=== PATIENT | female | born 1980 | race Caucasian/White ===

== ENCOUNTER → 2016-11-14 11:42 | Emergency (ER) | payer BC ==
[~2016-11-14 11:42] MED LIST: Ketorolac INJ* 60 MG/2 ML VIAL IM ONE
--- NOTE | 2016-11-14 13:12 | ED ---
Complex/Multi-Sys Presentation - HPI Summary HPI Summary: pt. complains of back, neck, chest and shoulder tightness, states they're knots in her back. unable to go to massage therapist due to not liking people touching her. She has had this pain for about 2 weeks and attributes it to stress at work. She says the pain improves in a hot shower and she has not taken any other medications to help with her discomfort. The pain does not radiate, but feels like it's in each separate place. She denies nausea, sweating , lightheadedness or shortness of breath. - History Of Current Complaint Chief Complaint: EDBackInjuryPain Time Seen by Provider: 11/14/16 12:00 Hx Obtained From: Patient Onset/Duration: Gradual Onset Timing: Intermittent, Lasting: - worse at times Severity Currently: Mild Severity Initially: Mild Character: Dull Aggravating Factor(s): stress Alleviating Factor(s): hot shower - Allergies/Home Medications Allergies/Adverse Reactions: Allergies Allergy/AdvReac Type Severity Reaction Status Date / Time Amoxicillin Allergy Severe HIVES, Verified 06/16/13 08:51 FEVER PMH/Surg Hx/FS Hx/Imm Hx Previously Healthy: Yes Endocrine/Hematology History: Denies: Hx Diabetes, Hx Thyroid Disease Cardiovascular History: Denies: Hx Hypertension, Hx Peripheral Vascular Disease Respiratory History: Denies: Hx Asthma, Hx Chronic Obstructive Pulmonary Disease (COPD) GI History: Denies: Hx Ulcer Musculoskeletal History: Denies: Hx Arthritis, Hx Osteoporosis, Hx Scoliosis Sensory History: Denies: Hx Cataracts, Hx Contacts or Glasses, Hx Glaucoma Opthamlomology History: Denies: Hx Cataracts, Hx Contacts or Glasses, Hx Glaucoma Neurological History: Reports: Hx Headaches Denies: Other Neuro Impairments/Disorders Psychiatric History: Denies: Hx Anxiety, Hx Depression - Surgical History Surgery Procedure, Year, and Place: TEETH EXTRACTION Infectious Disease History: No Infectious Disease History: Denies: Hx Hepatitis, Hx Human Immunodeficiency Virus (HIV), Traveled Outside the [place] in Last 30 Days - Family History Known Family History: Positive: None - Social History Occupation: Employed Full-time Lives: With Family Alcohol Use: Occasionally Substance Use Type: Reports: None Smoking Status (MU): Never Smoked Tobacco Review of Systems Negative: Fever, Chills Positive: Other - chest pressure Negative: Shortness Of Breath Positive: Myalgia Negative: Weakness, Paresthesia, Numbness All Other Systems Reviewed And Are Negative: Yes Physical Exam Triage Information Reviewed: Yes Vital Signs On Initial Exam: Initial Vitals Temp Pulse Resp BP Pulse Ox 98.1 F 116 20 123/81 105 11/14/16 11:49 11/14/16 11:49 11/14/16 11:49 11/14/16 11:49 11/14/16 11:49 Vital Signs Reviewed: Yes Appearance: Positive: Well-Appearing, No Pain Distress, Obese Skin: Positive: Warm, Skin Color Reflects Adequate Perfusion, Dry, Soft Head/Face: Positive: Normal Head/Face Inspection Eyes: Positive: EOMI, ISMAEL, Conjunctiva Clear ENT: Positive: Hearing grossly normal Neck: Positive: Supple, Nontender, No Lymphadenopathy Respiratory/Lung Sounds: Positive: Clear to Auscultation, Breath Sounds Present Cardiovascular: Positive: RRR - on exam Abdomen Description: Positive: Nontender, Soft. Negative: CVA Tenderness (R), CVA Tenderness (L), Distended, Guarding Bowel Sounds: Positive: Present Musculoskeletal: Negative: Pain @, Edema Left, Edema Right Neurological: Positive: Sensory/Motor Intact, Alert, Oriented to Person Place, Time, NV Bundle Intact Distally, Normal Gait Psychiatric: Positive: Affect/Mood Appropriate AVPU Assessment: Alert Diagnostics - Vital Signs Vital Signs Temp Pulse Resp BP Pulse Ox 11/14/16 11:52 98.6 F 91 20 120/78 100 11/14/16 11:49 98.1 F 116 20 123/81 105 - Laboratory Lab Statement: Any lab studies that have been ordered have been reviewed, and results considered in the medical decision making process. - Radiology No standard instances Xray Interpretation: No Acute Changes Radiology Interpretation Completed By: Radiologist - EKG No standard instances Cardiac Rate: NL EKG Rhythm: Sinus Rhythm ST Segment: Normal Ectopy: None Complex Multi-Symp Course/Dx - Diagnoses Differential Diagnoses/HQI/PQRI: Cardiac Ischemia, Closed Cranial Trauma, CVA, Metabolic Abnormality, Other Provider Diagnoses: Musculoskeletal pain Discharge - Discharge Plan Condition: Stable Disposition: HOME Prescriptions: Diazepam TAB(*) [Valium TAB(*)] 5 mg PO BID #10 tab MDD 2 Patient Education Materials: Musculoskeletal Pain (ED) Forms: *Work Release Referrals: Breana BOWENSPLavonne [Primary Care Provider] - Additional Instructions: Please use begin using 600mg of ibuprofen three times daily with meals for pain tomorrow at lunch for the next 3-5 days. Use the anti-anxiety medication at night. You need to contact your primary care provider for an appointment in the next 3-5 days to discuss your concerns and symptoms.
[2016-11-14 13:13] LABS: Hematocrit 43 % (35-47); Hemoglobin 14.2 g/dl (12.0-16.0); Mean Corpuscular HGB Conc 33 g/dl (31-36); Mean Corpuscular Hemoglobin 29 pg (27-31); Mean Corpuscular Volume 88 fL (80-97); Mean Platelet Volume 9 um3 (7.4-10.4); Red Blood Count 4.88 10^6/ul (4.0-5.4); Red Cell Distribution Width 13 % (10.5-15); White Blood Count 10.5 10^3/ul (3.5-10.8)
--- NOTE | 2016-11-14 13:13 | RAD ---
HISTORY: Shortness of breath, chest pressure COMPARISONS: None VIEWS: 2: Frontal dual-energy and lateral views of the chest. FINDINGS: CARDIOMEDIASTINAL SILHOUETTE: The cardiomediastinal silhouette is normal. [place]: The [place] are normal. PLEURA: The costophrenic angles are sharp. No pleural abnormalities are noted. LUNG PARENCHYMA: The lungs are clear. ABDOMEN: The upper abdomen is clear. There is no subphrenic gas. BONES AND SOFT TISSUES: No bone or soft tissue abnormalities are noted. OTHER: None. IMPRESSION: NO ACTIVE CARDIOPULMONARY DISEASE.
[2016-11-14 13:30] LABS: Troponin I 0.01 ng/mL (<0.04)
[2016-11-14 13:34] LABS: BUN/Creatinine Ratio 15.6 (8-20); Potassium 3.5 mmol/L (3.5-5.0)
[2016-11-14 13:35] LABS: Albumin 4.6 g/dL (3.2-5.2); C Reactive Protein 6.72 mg/L (< 5.00); Calcium 9.6 mg/dL (8.6-10.3); EGFR African American 109.7 (>60); EGFR Non-African American 85.3 (>60); Globulin 3.4 g/dL (2-4); Total Bilirubin 0.4 mg/dL (0.2-1.0)
[2016-11-14 14:10] VITALS: BP 111/74
== END | disposition home or self-care (01) ==
LOC: ED 11:42
DX: M79.1 Myalgia (principal); R07.89 Other chest pain
CPT/HCPCS: 36415; 71020; 80053; 84484; 85025; 85379; 86140; 96372; 99281; J1885

== ENCOUNTER 2018-11-03 13:48 | Inpatient (IN) | payer OTHER ==
[2018-11-03] MEDS ORDERED: Lactated Ringers 1000 ML Bag* 1,000 ML IV ONE (14:12)
[2018-11-03] MEDS ORDERED: Buffered Lidocaine 1% SYRIN* 1 ML/SYRINGE INTRADERM ONE (14:12)
[2018-11-03] MEDS ORDERED: ceFAZolin 2 GM PREMIX in ORs 2 GM/50 ML BAG IVPB ONE (14:12)
[2018-11-03 15:15] LABS: ABS Basophils 0.1 10^3/ul (0-0.2); ABS Eosinophils 0.1 10^3/ul (0-0.6); ABS Monocytes 0.7 10^3/ul (0-0.8); ABS Neutrophils 7.9 10^3/ul (1.5-7.7); Eosinophil % 0.7 %; Hematocrit 35 % (35-47); Hemoglobin 11.8 g/dL (12.0-16.0); Lymphocyte % 18.6 %; Mean Corpuscular HGB Conc 34 g/dL (31-36); Mean Corpuscular Hemoglobin 30 pg (27-31); Mean Corpuscular Volume 88 fL (80-97); Nucleated Red Blood Cells % 0.1; Platelet Count 250 10^3/uL (150-450); Red Blood Count 3.97 10^6 /uL (3.70-4.87); Red Cell Distribution Width 14 % (10.5-15); White Blood Count 10.7 10^3/uL (3.5-10.8)
--- NOTE | 2018-11-03 21:59 | HP ---
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, BMI 38 Pertinent Past Surgical History: None Pertinent Family History: See Records - m: gestational diabetes mellitus, F: DM; PGM: DM; MGM: DM and stroke - Antepartal Records Antepartal Records: Reviewed, Complicated by: - AMA, BMI 38, low lying placenta (resolved), calcified blood clot in brain Review of Systems Constitutional: Comfortable CV Complaint: No Respiratory: Shortness of Breath: No Gastrointestinal: No Nausea/Vomiting, Normal Bowel Movement Genitourinary: No Dysuria, No Bleeding, No Leaking Fluid Musculoskeletal: No Complaint, Contractions Neurological: No Headache, No Visual Changes Movement: Decreased Exam Allergies/Adverse Reactions: Allergies amoxicillin Allergy (Verified 07/06/18 19:19) Hives cat dander Allergy (Verified 11/03/18 14:59) Eyes Itchy/Swollen/Red/Watery onion Allergy (Uncoded 11/03/18 14:59) Difficulty Breathing/Wheezing T: 98.5, P:101, R:16, BP: 108/56, O2:99% Lab Values - Entire Visit: Laboratory Tests 11/03/18 11/03/18 11/03/18 14:40 14:40 20:25 WBC 10.7 RBC 3.97 Hgb 11.8 L Hct 35 MCV 88 MCH 30 MCHC 34 RDW 14 Plt Count 250 MPV 10.0 Neut % (Auto) 73.5 Lymph % (Auto) 18.6 [place] % (Auto) 6.6 Eos % (Auto) 0.7 Baso % (Auto) 0.6 Absolute Neuts (auto) 7.9 H Absolute Lymphs (auto) 2.0 Absolute Monos (auto) 0.7 Absolute Eos (auto) 0.1 Absolute Basos (auto) 0.1 Absolute Nucleated RBC 0.0 Nucleated RBC % 0.1 Vag Amniotic Fld Detect Positive Blood Type O Positive Antibody Screen Negative - Measurements Height: 5 ft 1 in Weight: 213 lb Weight in lbs: [id number] Body Mass Index (BMI): 40.2 Pre- Weight: 204 lb Weight Gained This : 9 lbs and 0 ozs - Exam Breast: Breast Exam Deferred CVA: No CVA Tenderness Extremities: No Edema Heart: Normal Rhythm/Heart Sounds HEENT: No Significant Findings Lungs: Clear Bilaterally Rectal: Rectal Exam Deferred Reflexes: DTR 2+ Thyroid: No Thyromegaly - Abdominal Exam Abdomen Exam: Fundal Height Consistent with Dates - Ultrasound/Biophysical Profile Ultrasound Status: Not Done Targeted Exam Findings Estimated Weight: 8lb Cervical Exam: 4cm Effacement: 60% Station: -2 Presenting Part: Vertex Membrane Status: Bulging Bleeding/Discharge: Bloody Show EFM Findings - External Monitor Findings Baseline Heart Rate: 150 External Monitor Findings: Accelerations Present, No Pattern of Variable or Late Decelerations, Variability Moderate, Baseline Stable Contractions: Irregular, Mild, < 45 Seconds Assessment/Plan - Assessment 38 y.o , 39w6d, AMA, induction of labor - Obstetrical Risk Factors Obstetrical Risk Factors: GBS Positive - Plan Plan: Induction - Date/Time of Admission Date of Admission: 11/03/18 Time of Admission: 14:45
[2018-11-03] MEDS ORDERED: Oxytocin in LR* 20 UNITS/1,000 ML BAG IVPB SCH (22:00)
[2018-11-03] MEDS: ceFAZolin 1 GM in Dextrose (*) 1 GM/50 ML BAG IVPB SCH (22:42)
--- NOTE | 2018-11-04 00:50 | PN ---
Progress Note - Progress Note Date of Service: 11/04/18 SOAP: Subjective: Pt reports contractions are more intense than before SROM but are still irregular and have not intensified in last few hours. Objective: T:98.2, R:20, BP:112/78, P:81 FHR: 125, + accels, -decels, moderate variability cervix: 4-5/70/-2 Assessment: 38 y.o. , cat I NST, GBS +, SROM, induction of labor Plan: 1) Reviewed options with pt and pt agrees to pitocin augmentation. Reviewed risks versus benefits and questions answered to pt satisfaction 2) Low dose pitocin to be started at 3mu 3) Pt plans epidural with onset of more intense pain 4) Reevaluate in 2 hrs or sooner PRN
--- NOTE | 2018-11-04 04:53 | PN ---
Progress Note - Progress Note Date of Service: 11/01/18 SOAP: Subjective: Pt reports she was coping well and then she felt a "pop, pop" followed by an increase in pressure, leaking of more bloody tinged fluid and more powerful contractions. Pt requests an epidural Objective: BP:104/60, P:73, T:98.7, FHR: 135, + accels, -decels, moderate variability, ctx q 2-3min, pitocin at 8mu cervix: 5.5/80/-1 Laboratory Tests 11/03/18 11/03/18 14:40 14:40 WBC 10.7 RBC 3.97 Hgb 11.8 L Hct 35 Plt Count 250 Blood Type O Positive Antibody Screen Negative Assessment: 38 y.o. , active labor Plan: 1) Anesthesia consult for epidural 2) Continue position changes for descent and reevaluate in 2 hrs or sooner PRN
[2018-11-04] MEDS ORDERED: OBEPIDURAL* 0 ML EPIDURAL ONE (05:01)
[2018-11-04] MEDS ORDERED: OBEPIDURAL* 250 ML EPIDURAL ONE (05:03)
[2018-11-04] MEDS ORDERED: Bupivacaine 0.25% SDV PF* 10 ML VIAL INJ ONE (05:11)
[2018-11-04] MEDS ORDERED: Lidocaine 1% INJ* 10 MG/ML 30 ML SDV ONE ×2 (05:14→14:11)
[2018-11-04] MEDS ORDERED: Phenylephrine 40 MCG/ML SYRINGE IV PUSH PRN (05:42)
[2018-11-04] MEDS ORDERED: Famotidine TAB* 20 MG PO PRN (05:42)
[2018-11-04] MEDS ORDERED: Sodium Citrate/Citric Acid* 15 ML UDC PO PRN (05:42)
[2018-11-04] MEDS ORDERED: Lactated Ringers 1000 ML Bag* 1,000 ML IV ONE (05:42)
[2018-11-04] MEDS ORDERED: EPHEDrine (Pressors)* 50 MG/ML VIAL IV PUSH PRN (05:42)
[2018-11-04] MEDS ORDERED: Lactated Ringers 1000 ML Bag* 1,000 ML IV SCH ×2 (06:00→11:00)
[2018-11-04] MEDS ORDERED: OBEPIDURAL* 250 ML EPIDURAL SCH (06:00)
[2018-11-04] MEDS: ceFAZolin 1 GM in Dextrose (*) 1 GM/50 ML BAG IVPB SCH (06:52)
[2018-11-04] MEDS: Lactated Ringers 1000 ML Bag* 1,000 ML IV SCH ×2 (08:18→10:13)
[2018-11-04] MEDS ORDERED: Glycerin ADULT SUPP PR PRN (10:44)
[2018-11-04] MEDS ORDERED: Dibucaine 1% 28.35 GM TUBE PR PRN (10:44)
[2018-11-04] MEDS ORDERED: Witch Hazel PAD* JAR TOPICAL PRN (10:44)
[2018-11-04] MEDS ORDERED: Acetaminophen TAB* 325 MG PO PRN (10:44)
--- NOTE | 2018-11-04 10:46 | PROCNOTE ---
[facility] OB: Delivery Note - Delivery A Date of : 11/04/18 Time of : 10:22 Sex: Female Score 1 Minute: 9 Score 5 Minutes: 9 Gestational Age in Weeks and Days at Delivery: 40 Weeks and 0 Days Delivery Method: Spontaneous Vaginal Labor: Induced Amniotic Fluid: Clear Estimated Blood Loss: 300 Anesthesia/Analgesia: CEI for Labor Delivered By: Penny Ling - Nursery Level of Nursery: Regular/Bedside - Perineum Perineal Injury: Perineal Laceration, 1st Degree Perineal Repair: By Delivering Practioner - Events Delivery Events of Note: Pitocin During Labor, Full Course of Antibiotics
[2018-11-04] MEDS ORDERED: Simethicone TAB* 80 MG TAB.CHEW PO SCH (12:30)
[2018-11-04] MEDS: Docusate CAP* 100 MG PO SCH ×2 (16:22→20:33)
[2018-11-04] MEDS: Ibuprofen TAB* 600 MG PO PRN (18:27)
[2018-11-05] MEDS: Ibuprofen TAB* 600 MG PO PRN ×3 (00:48→14:49)
[2018-11-05 06:50] LABS: ABS Basophils 0.1 10^3/ul (0-0.2); ABS Eosinophils 0.1 10^3/ul (0-0.6); Eosinophil % 0.9 %; Hematocrit 29 % (35-47); Hemoglobin 9.7 g/dL (12.0-16.0); Lymphocyte % 21.2 %; Mean Corpuscular HGB Conc 33 g/dL (31-36); Mean Corpuscular Hemoglobin 29 pg (27-31); Mean Corpuscular Volume 88 fL (80-97); Mean Platelet Volume 9.2 fL (7.4-10.4); Platelet Count 186 10^3/uL (150-450); Red Blood Count 3.31 10^6 /uL (3.70-4.87); Red Cell Distribution Width 14 % (10.5-15); White Blood Count 14.4 10^3/uL (3.5-10.8)
[2018-11-05] MEDS: Ferrous Gluconate TAB* 324 MG TAB PO SCH ×2 (09:14→20:20)
[2018-11-05] MEDS: Docusate CAP* 100 MG PO SCH ×3 (09:15→20:20)
[2018-11-06] MEDS: Ibuprofen TAB* 600 MG PO PRN (01:48)
[2018-11-06 07:57] VITALS: BP 127/73
[2018-11-06] MEDS: Docusate CAP* 100 MG PO SCH (09:12)
[2018-11-06] MEDS: Ferrous Gluconate TAB* 324 MG TAB PO SCH (09:12)
== END 2018-11-06 11:30 | disposition home or self-care (01) | DRG 560 ==
LOC: MCHOBOUT 13:48 → MCHOB 14:15
PROVIDERS: ADMIT Midwife; ATTEND Midwife
PROC: 3E033VJ Introduction of Other Hormone into Peripheral Vein, Percutaneous Approach (ICD-10-PCS; principal; 2018-11-03)
PROC: 10E0XZZ Delivery of Products of Conception, External Approach (ICD-10-PCS; 2018-11-03)
PROC: 4A1HX4Z Monitoring of Products of Conception, Cardiac Electrical Activity, External Approach (ICD-10-PCS; 2018-11-03)
PROC: 0HQ9XZZ Repair Perineum Skin, External Approach (ICD-10-PCS; 2018-11-03)
DX: O99.824 Streptococcus B carrier state complicating childbirth (principal); Z37.0 Single live birth; J30.81 Allergic rhinitis due to animal (cat) (dog) hair and dander; Z3A.39 39 weeks gestation of pregnancy; Z88.0 Allergy status to penicillin; Z91.018 Allergy to other foods; O70.0 First degree perineal laceration during delivery; O90.81 Anemia of the puerperium
CPT/HCPCS: 36415; 84112; 85025; 86850; 86900; 86901; A9270-GY; J0690; J3490

== ENCOUNTER 2019-02-18 15:01 | Emergency (ER) | payer OTHER ==
[2019-02-18 15:09] VITALS: BP 126/79
--- NOTE | 2019-02-18 15:11 | UC ---
Throat Pain/Nasal Chuy HPI - HPI Summary HPI Summary: 38 y/o female presents to the urgent care c/o waking up this morning w/ sore throat and midl clear nasal discharge and PND. Pt is concerned about strep since she has a 3 month old baby at home. P tis not breast feeding. Pt states pain w/ swallowing is mild 2/10. Pt denies fever, PARKS, SOB, dizziness, abdominal pain, N/V/D. - History of Current Complaint Chief Complaint: UCRespiratory Stated Complaint: SORE THROAT, AND FEVER Time Seen by Provider: 02/18/19 15:09 Hx Obtained From: Patient Hx Last Menstrual Period: January 2018 ?: No - she recently had a baby, not Onset/Duration: Gradual Onset, Lasting Hours - 12 hrs, Still Present Severity: Mild Pain Intensity: 2 - sore throat Pain Scale Used: 0-10 Numeric Cough: None Associated Signs & Symptoms: Positive: Negative. Negative: Sinus Discomfort, Nasal Discharge, Fever - Epiglottits Risk Factors Epiglottis Risk Factors: Negative - Allergies/Home Medications Allergies/Adverse Reactions: Allergies Allergy/AdvReac Type Severity Reaction Status Date / Time amoxicillin Allergy Hives Verified 02/18/19 15:06 cat dander Allergy Eyes Verified 02/18/19 15:06 Itchy/Swollen/Red/Watery onion Allergy Difficulty Verified 02/18/19 15:06 Breathing/Wheezing Home Medications: Home Medications NK [No Home Medications Reported] 02/18/19 [History Confirmed 02/18/19] PMH/Surg Hx/FS Hx/Imm Hx Previously Healthy: Yes - Surgical History Surgical History: Yes Surgery Procedure, Year, and Place: TEETH EXTRACTION - Family History Known Family History: Positive: Hypertension, Diabetes Family History: dyslipidemia - Social History Occupation: Unemployed Lives: With Family Alcohol Use: None Substance Use Type: None Smoking Status (MU): Never Smoked Tobacco Have You Smoked in the Last Year: No - Immunization History Most Recent Influenza Vaccination: 05/08/18 Most Recent Pneumonia Vaccination: none Review of Systems All Other Systems Reviewed And Are Negative: Yes Constitutional: Positive: Negative Skin: Positive: Negative Eyes: Positive: Negative ENT: Positive: Sore Throat Respiratory: Positive: Negative Cardiovascular: Positive: Negative Gastrointestinal: Positive: Negative Genitourinary: Positive: Negative Motor: Positive: Negative Neurovascular: Positive: Negative Musculoskeletal: Positive: Negative Neurological: Positive: Negative Psychological: Positive: Negative Is Patient Immunocompromised?: No Physical Exam - Summary Physical Exam Summary: VITAL SIGNS: Reviewed. GENERAL: Patient is a well developed and nourished obese female who is sitting comfortable in the examining table. Patient is not in any acute respiratory distress. HEAD AND FACE: No signs of trauma. No ecchymosis, hematomas or skull depressions. No sinus tenderness. EYES: PERRLA, EOMI x 2, No injected conjunctiva, no nystagmus. No photophobia. EARS: Hearing grossly intact. Ear canals and tympanic membranes are within normal limits. MOUTH: Positive pharynx with erythema, exudates, palatal petechiae. B/L tonsillar enlargement with exudate. Uvula in midline. NECK: Supple, trachea is midline, Positive anterior cervical lymphadenopathy, no JVD, no carotid bruit, no c-spine tenderness, neck with full ROM. No meningeal signs, no Kernig's or brudzinskis signs. CHEST: Symmetric, no tenderness at palpation LUNGS: Clear to auscultation bilaterally. No wheezing or crackles. CVS: Regular rate and rhythm, S1 and S2 present, no murmurs or gallops appreciated. ABDOMEN: Soft, non-tender. No signs of distention. No rebound no guarding, and no masses palpated. Bowel sounds are normal. EXTREMITIES: FROM in all major joints, no edema, no cyanosis or clubbing. NEURO: Alert and oriented x 3. No acute neurological deficits. Speech is normal and follows commands. SKIN: Dry and warm Triage Information Reviewed: Yes Vital Signs: Initial Vital Signs Temp 98.6 F 02/18/19 15:06 Pulse 95 02/18/19 15:06 Resp 18 02/18/19 15:06 BP 126/79 02/18/19 15:06 Pulse Ox 100 02/18/19 15:06 Throat Pain/Nasal Course/Dx - Course Course Of Treatment: 38 y/o female presents to the urgent care c/o waking up this morning w/ sore throat and midl clear nasal discharge and PND. Pt is concerned about strep since she has a 3 month old baby at home. P tis not breast feeding. Pt states pain w/ swallowing is mild 2/10. Pt denies fever, PARKS, SOB, dizziness, abdominal pain, N/V/D. Hx obtained. Pt w/ pharyngitis on examination. Rapid strep ordered, result: negative. Viral pharyngitis.Pt Rx ibuprofen PO to alleviates symptoms of pain and swelling. Advised on hand washing to avoid spreading. Pt advised to rest, eat well and avoid strenuous exercise. If symptoms do not improve or worsen advised to return to the urgent care or f/u with her PCP for further evaluation and treatment. Pt understood and agreed - Differential Dx/Diagnosis Differential Diagnosis/HQI/PQRI: Laryngitis, Mononucleosis, Otitis Media, Pharyngitis, Sinusitis, Tonsillitis, URI Provider Diagnosis: Acute viral pharyngitis Discharge ED - Sign-Out/Discharge Documenting (check all that apply): Patient Departure - d/c home All imaging exams completed and their final reports reviewed: No Studies - Discharge Plan Condition: Stable Disposition: HOME Patient Education Materials: Pharyngitis (ED) Forms: *Work Release Referrals: Nikki Diaz [Primary Care Provider] - 3 Days Additional Instructions: 1-Please take ibuprofen PO q6-8hrs prn as instructed after meals to alleviate pain and swelling. Increase fluid intake, eat well, rest and avoid strenuous exercise 2-If symptoms do not improve or worsen please return to the urgent care or f/u with your PCP in 3 days for further evaluation and treatment. - Billing Disposition and Condition Condition: STABLE Disposition: Home
== END 2019-02-18 15:58 | disposition home or self-care (01) ==
LOC: UCEAST 15:01
DX: J02.8 Acute pharyngitis due to other specified organisms (principal)
CPT/HCPCS: 87651; 99211; G0463

== ENCOUNTER 2020-06-22 05:53 | Inpatient (IN) ==
[~2020-06-22 05:53] MED LIST changes: -Ketorolac INJ* 60 MG/2 ML VIAL IM ONE; +Lactated Ringers 1000 ml BAG 1,000 ML IV SCH
[2020-06-22] MEDS ORDERED: Lactated Ringers 1000 ml BAG 1,000 ML IV SCH ×2 (06:00→10:00)
[2020-06-22] MEDS ORDERED: Sodium Citrate/Citric Acid LIQ 15 ML UDC PO ONE (06:00)
[2020-06-22] MEDS ORDERED: Buffered Lidocaine 1% SYRIN 1 ml INTRADERM ONE (06:00)
[2020-06-22] MEDS ORDERED: ceFOXitin 2 GM IVPREMIX 2 GM/50 ML BAG IVPB ONE (06:00)
[2020-06-22 06:40] LABS: Urine Benzodiazepine Screen None Detected (None Detect); Urine Cannabinoids Screen None Detected (None Detect); Urine Opiates Screen None Detected (None Detect)
[2020-06-22] MEDS ORDERED: Oxytocin 10 UNITS/ML 1 ML VIAL ONE (07:38)
[2020-06-22] MEDS ORDERED: Phenylephrine 40 mcg/mL 10mL (400mcg) SYRINGE ONE (07:38)
[2020-06-22] MEDS ORDERED: Morphine PF AMP (0.5MG/ML) 5 MG/10 ML AMP ONE (07:38)
[2020-06-22] MEDS ORDERED: Naloxone 0.4 mg VIAL 0.4 mg/ml 1 ml VIAL IV PRN ×2 (07:50→07:51)
[2020-06-22] MEDS ORDERED: fentaNYL 100 mcg/2 ml 50 MCG/ML VIAL IV PRN (07:50)
[2020-06-22] MEDS ORDERED: Ondansetron 4 mg VIAL 2 MG/ML 2 ml VIAL IV PRN ×2 (07:50→07:51)
[2020-06-22] MEDS ORDERED: Scopolamine PATCH Remove NOTE PATCH OFF PRN (07:51)
[2020-06-22] MEDS ORDERED: oxyCODONE/Acetamin 5/325 mg TAB PO PRN ×2 (07:51)
[2020-06-22] MEDS ORDERED: diPHENhydraMINE IV 50 MG/ML 1 ml VIAL (BENADRYL) IV PRN (07:51)
[2020-06-22] MEDS ORDERED: Witch Hazel PAD JAR TOPICAL PRN (09:14)
[2020-06-22] MEDS ORDERED: Dibucaine 1% OINT 28.35 GM TUBE PR PRN (09:14)
[2020-06-22] MEDS ORDERED: Glycerin ADULT 2.4 gm SUPP PR PRN (09:14)
[2020-06-23 06:19] LABS: ABS Basophils 0.1 10^3/ul (0-0.2); ABS Eosinophils 0.1 10^3/ul (0-0.6); ABS Lymphocytes 2.3 10^3/ul (1.0-4.8); ABS Monocytes 0.9 10^3/ul (0-0.8); ABS Neutrophils 7.2 10^3/ul (1.5-7.7); Eosinophil % 1.2 %; Hematocrit 31 % (35-47); Hemoglobin 10.3 g/dL (12.0-16.0); Lymphocyte % 21.7 %; Mean Corpuscular HGB Conc 34 g/dL (31-36); Mean Corpuscular Hemoglobin 30 pg (27-31); Mean Corpuscular Volume 88 fL (80-97); Mean Platelet Volume 8.4 fL (7.4-10.4); Nucleated Red Blood Cells % 0.1; Platelet Count 190 10^3/uL (150-450); Red Blood Count 3.45 10^6 /uL (3.70-4.87); Red Cell Distribution Width 14 % (10-15); White Blood Count 10.7 10^3/uL (3.5-10.8)
[2020-06-24 08:11] VITALS: BP 129/67
== END 2020-06-24 12:56 | disposition home or self-care (01) | DRG 540 ==
LOC: MCHOB 05:53
PROVIDERS: ADMIT Obstetrics & Gynecology; ATTEND Obstetrics & Gynecology